=== PATIENT | female | born 1945 | race Caucasian/White ===

== ENCOUNTER 2024-08-22 14:03 | Emergency (ER) | payer BC, MEDICARE ==
[~2024-08-22] VITALS: Ht 157.5 cm; Wt 65.8 kg
[2024-08-22] MEDS ORDERED: LIDOCAINE 1%-EPI 1:100,000 20 ML VIAL ONE (14:57)
[2024-08-22] MEDS: LIDOCAINE 1%-EPI 1:100,000 20 ML VIAL IJ ONE (15:00)
[2024-08-22] MEDS ORDERED: EZET10TA32 PO (16:02)
[2024-08-22] MEDS ORDERED: ESCI-9 PO (16:02)
[2024-08-22] MEDS ORDERED: HYDR12.517 PO (16:02)
[2024-08-22] MEDS ORDERED: ZOLP5TAB8 PO (16:02)
[2024-08-22] MEDS ORDERED: LISI10TA29 PO (16:02)
[2024-08-22] MEDS ORDERED: NEOMY/BACITRA/POLYMYXIN B OINT UD PACKET TP ONE (17:23)
[2024-08-22] MEDS: NEOMY/BACITRA/POLYMYXIN B OINT UD PACKET TP ONE (17:28)
[2024-08-22 18:30] VITALS: BP 143/80; TEMP 97.6; O2SAT 96
== END 2024-08-22 18:31 | disposition home or self-care (01) ==
LOC: ER 14:03
DX: S01.112A Laceration without foreign body of left eyelid and periocular area, initial encounter (principal); S81.012A Laceration without foreign body, left knee, initial encounter; I11.9 Hypertensive heart disease without heart failure; E78.5 Hyperlipidemia, unspecified; F32.A Depression, unspecified; Z79.899 Other long term (current) drug therapy; W01.0XXA Fall on same level from slipping, tripping and stumbling without subsequent striking against object, initial encounter; Y93.89 Activity, other specified; Y92.89 Other specified places as the place of occurrence of the external cause; Y99.8 Other external cause status
CPT/HCPCS: 99283; 12011; 73560; 12001; J3490; A4606; A4663

== ENCOUNTER 2024-08-27 18:35 | Emergency (ER) | payer BC ==
[~2024-08-27] VITALS: Ht 157.5 cm; Wt 65.8 kg
[~2024-08-27 18:35] MED LIST: ESCI-9 PO; EZET10TA32 PO; HYDR12.517 PO; LISI10TA29 PO; ZOLP5TAB8 PO
[2024-08-27 20:12] VITALS: BP 133/87; O2SAT 98
== END 2024-08-27 20:13 | disposition home or self-care (01) ==
LOC: ER 18:35
DX: S06.0XAA Concussion with loss of consciousness status unknown, initial encounter (principal); S01.112D Laceration without foreign body of left eyelid and periocular area, subsequent encounter; S81.012D Laceration without foreign body, left knee, subsequent encounter; R06.03 Acute respiratory distress; R41.82 Altered mental status, unspecified; R51.9 Headache, unspecified; E78.5 Hyperlipidemia, unspecified; Z79.899 Other long term (current) drug therapy; W18.39XA Other fall on same level, initial encounter; Y93.89 Activity, other specified; Y92.89 Other specified places as the place of occurrence of the external cause; Y99.8 Other external cause status
CPT/HCPCS: 70450; 71045; A4606; A4663